=== PATIENT | male | born 1940 | race Caucasian/White ===

== ENCOUNTER 2017-02-28 02:33 | Inpatient (IN) | payer MEDICARE, BC ==
[~2017-02-28] VITALS: Ht 172.7 cm; Wt 82.0 kg
[~2017-02-28 02:33] MED LIST: AFRIN15 ML IN; ASA325 MG PO; BIOTIN1 MG PO; BYSTOLIC5 MG PO; CHLORASEPTIC SPR6 OZ PO; COUMADIN5 MG PO; ENABLEX15 MG PO; FOLIC ACID0.4 MG PO; GINSENG100 M1 PO; JANUVIA100 MG PO; LIPITOR DPS10 MG PO; MORPHINE2 MG/ML IV; NEURONTIN DPS600 MG PO; NOVOLOG100 UNIT/2 SQ; SUPER B COMPLE150 MG PO; VITAMIN B-121000 MCG PO; VITAMIN B-6 PO; XYLOCAINE JELLY30 GM MS; ZESTRIL DPS10 MG PO; ZOFRAN DPS4 MG/2 ML IV; ZOFRAN ODT8 MG PO; [UNRECOGNIZED DRUG - OTHER] PO; [UNRECOGNIZED DRUG - OTHER] PO
--- NOTE | 2017-03-01 13:57 | HP ---
ADMIT: 02/28/2017 RM/LOC: 427 [facility] MR#: [id number] [address] [id number] [address] [place] [address] History and Physical SEX: M AGE: 76 : 1940 DATE OF SERVICE: CHIEF COMPLAINT: Abdominal pain, nausea, vomiting. HISTORY OF PRESENT ILLNESS: A 76-year-old gentleman with history of colon cancer back in the s with resection and ostomy placement. He is complaining of some abdominal pain, began about 2 hours prior to arrival. He has a long history of bowel obstructions, last one in a couple of months ago. This feels just like the previous one. He has some increased abdominal bloating, decreased ostomy output, and pain. He has tenderness diffused throughout the abdomen. Last evening, he had some output, but it is really slowed down. He also very nauseated and has abdominal distention. He is here with family and they have gone through this many times, and so he is here with him today. He actually has an NG placed and does feel much better than he did earlier. He did vomit a large amount prior to that. CT in the ER did reveal small bowel obstruction. PAST MEDICAL HISTORY: 1. History of colon cancer back in the s, status post resection, currently with ostomy in place. 2. 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 3. He has hypertension. 4. Hyperlipidemia. 5. Diabetes type 2. 6. BPH. 7. History of hypogonadism. 8. Peripheral neuropathy. 9. Left carotid stenosis. 10.History of bradycardia, status post pacer in 2010. 11.He has hearing impairment, status post cochlear implant. HOME MEDICATIONS: 1. Metoprolol 25 mg b.i.d. 2. Aspirin 81 mg daily. 3. Oxybutynin 5 mg b.i.d. 4. Gabapentin 600 mg b.i.d. twice a day. 5. Glimepiride 4 mg noon and in the evening. 6. [place] 5/325 every six as needed. 7. Lisinopril 10 mg at bedtime. 8. MiraLax daily. 9. Warfarin 1.25 mg daily. SOCIAL HISTORY: He quit smoking 40 years ago. Currently, nondrinker. Lives at home. FAMILY HISTORY: Significant for hypertension, diabetes, and coronary artery disease. ADMIT: 02/28/2017 RM/LOC: 427 [facility] MR#: [id number] [address] [address] [address] [place] [address] History and Physical SEX: M AGE: 76 : 1940 REVIEW OF SYSTEMS: The patient with some very difficult time hearing and some expressive aphasia. Other complete review of systems obtained and negative except as above. PHYSICAL EXAMINATION: VITAL SIGNS: Temperature 97.6, pulse 60, respirations 18, blood pressure 145/59, oxygen saturation 97% on 2 L of oxygen by nasal cannula. GENERAL: This is a well-appearing, 76-year-old gentleman, in no apparent distress. He is alert. He is oriented. He has poor hearing. HEENT: Head is normocephalic and atraumatic. Pupils equal, round, and reactive to light and accommodation. Extraocular muscles are intact. Throat is clear. NECK: Supple. Trachea midline. Thyroid not palpable. HEART: Regular rate and rhythm. LUNGS: Clear to auscultation bilaterally. ABDOMEN: Diffusely distended. Tympanic to percussion. It is mildly tender diffusely. He has NG in place. EXTREMITIES: Lower extremities have just trace lower extremity edema. He can move all extremities equally and bilaterally. Radial pulses are normal. LABORATORY AND X-RAY DATA: CBC with a white count of 14.2, hemoglobin 15.5, Platelets of 204. INR 2.75. CMP; sodium 135, potassium 4.5, Chloride 102, bicarb 23, BUN 15, creatinine 1.0. Lipase was low. Liver tests normal. Lactic acid initially 2.[address] scan again with obstruction. ASSESSMENT: 1. Abdominal pain. 2. Nausea and vomiting. 3. Small bowel obstruction. He has NG in place at the current time. 4. History of colon cancer. 5. History of cerebrovascular accident. 6. Diabetes. 7. Hypertension. 8. Hyperlipidemia. 9. Chronic anticoagulation. PLAN: We will follow his INRs closely. We will just do the waiting game. We have given him decompression with an NG tube and pain medicine as well as anti- nausea medicine until his bowel obstruction can resolve on its own. We will try to control his sugars in the mean time. Saurabh Luna MD/ del JOB #: [id number] CC: Jacobo Mane, Attending Physician ADMIT: 02/28/2017 RM/LOC: [facility] MR#: [id number] [facility] [address] [address] [address] [place] [address] History and Physical SEX: M AGE: 76 : 1940 Jacobo Mane, Family Physician
--- NOTE | 2017-03-06 15:02 | DS ---
ADMIT: 02/28/2017 RM/LOC: 427 [facility] MR#: [id number] [facility] [address] [place] [id number] [address] [place] [address] Discharge Summary SEX: M AGE: 76 : 1940 ADMISSION DATE: 02/28/2017 DISCHARGE DATE: 03/05/2017 CONSULTATIONS: None. PROCEDURES: None. FINAL DIAGNOSES: 1. Small bowel obstruction. 2. History of colon cancer. 3. History of stroke, on chronic anticoagulation. 4. Diabetes type 2, on oral agents. REASON FOR ADMISSION: The patient is a very pleasant, 76-year-old gentleman with recurrent small bowel obstruction. Came to the ER with increasing abdominal pain, no ostomy output. CT scan concerning for obstruction. Admitted for further stabilization. HOSPITAL COURSE: The patient was admitted. NG placed to low intermittent suction and then high intermittent suction. Slowly and steadily improved. Required [employer] for pain control intermittently. Ultimately, we were able to start some soapsuds enema per ostomy and then escalate to Mag citrate orally, and his bowel function returned to normal. Tolerated a general diet well. [place] safe and stable and eager for discharge. DISCHARGE INSTRUCTIONS: He will discharge to home. He will be on his home medications other than we are going to do a bottle of Mag citrate once weekly, and he will pick the day. Follow up with me in 10-14 days in clinic. INR at that follow-up appointment. The patient is agreeable to plan. Jacobo Mane MD/ deja JOB #: [id number] CC: Jacobo Mane MD, Attending Physician Jacobo Mane MD, Family Physician
[2017-03-06] MEDS ORDERED: METOPROLOL TART25 MG PO (17:02)
[2017-03-06] MEDS ORDERED: NEURONTIN DPS600 MG PO (17:03)
[2017-03-06] MEDS ORDERED: NORCO 5-325 TA1 EACH PO (17:03)
[2017-03-06] MEDS ORDERED: DITROPAN-DPS5 MG PO (17:03)
[2017-03-06] MEDS ORDERED: AMARYL DPS4 MG PO (17:03)
[2017-03-06] MEDS ORDERED: ASA CHILDREN'S81 MG PO (17:03)
[2017-03-06] MEDS ORDERED: ZESTRIL DPS10 MG PO (17:04)
[2017-03-06] MEDS ORDERED: COUMADIN2.5 MG PO (17:04)
[2017-03-06] MEDS ORDERED: MIRALAX PACKET17 GM PO (17:04)
[2017-03-06] MEDS ORDERED: CITROMA DPS300 ML PO (17:05)
--- NOTE | 2017-03-18 07:35 | ER ---
ADMIT: 02/28/2017 RM/LOC: ER [facility] MR#: [id number] [address] [address] [address] [place] [address] Emergency Room Report SEX: M AGE: 76 : 1940 DATE: 02/28/2017 ADDENDUM: See T-sheet for complete H and P. A 76-year-old male with history of colon cancer in the 90s with resection and an ostomy, comes in complaining of abdominal pain that began approximately 2 hours ago. The patient has a long history of bowel obstructions in the past and states this feels like his previous bowel obstructions. Pain is 10/10 and diffuse through his abdomen. He has had some output in his ostomy earlier in the evening, but it seems like it has slowed down. He also feels nauseous and bloated. PHYSICAL EXAMINATION: The patient is obviously in pain. He has high-pitched bowel sounds. No output in his ostomy is seen here, and his abdomen is distended and diffusely tender. LABORATORY DATA: Laboratory results show he has a white count of 14.2, otherwise CBC is unremarkable. Chemistries were unremarkable other than an elevated glucose, and his lactic acid is 2.3. We did check an INR as he has a history of CVAs and is on Coumadin and his INR today was 2.75. CT of abdomen and pelvis was done, which reveals dilated loops of small bowel with likely ileus versus obstruction. EMERGENCY DEPARTMENT COURSE: He did have IV started here, was given a liter of normal saline, Dilaudid for pain, and Zofran for nausea. He had improvement in his symptoms, but they are not completely resolved. While in the ER, the patient was refusing NG tube placement. He was admitted to Dr. Mane's service with a diagnosis of abdominal pain and small-bowel obstruction. Francisco Chisholm MD/ del JOB #: [id number] CC: Francisco Chisholm MD, Attending Physician Jacobo Mane MD, Family Physician
[2017-07-26] MEDS ORDERED: COUMADIN2.5 MG PO (12:06)
[2017-07-26] MEDS ORDERED: COUMADIN5 MG PO (12:07)
[2017-07-26] MEDS ORDERED: LIPITOR DPS10 MG PO (12:07)
[2017-07-31] MEDS ORDERED: AMARYL DPS4 MG PO (17:03)
[2017-07-31] MEDS ORDERED: COUMADIN5 MG PO (17:04)
[2017-07-31] MEDS ORDERED: LIPITOR DPS10 MG PO (17:04)
[2017-07-31] MEDS ORDERED: METOPROLOL TART25 MG PO (17:04)
[2017-07-31] MEDS ORDERED: DITROPAN-DPS5 MG PO (17:04)
[2017-07-31] MEDS ORDERED: COUMADIN2.5 MG PO (17:04)
[2017-07-31] MEDS ORDERED: NEURONTIN DPS600 MG PO (17:05)
== END 2017-03-05 12:50 | disposition home or self-care (01) | DRG 390 ==
LOC: ER 02:33 → 4PCU 05:33
PROVIDERS: ADMIT Internal Medicine
DX: K56.60 Unspecified intestinal obstruction (principal); E11.42 Type 2 diabetes mellitus with diabetic polyneuropathy; I69.320 Aphasia following cerebral infarction; I10 Essential (primary) hypertension; E78.5 Hyperlipidemia, unspecified; N40.0 Benign prostatic hyperplasia without lower urinary tract symptoms; H91.90 Unspecified hearing loss, unspecified ear; I65.22 Occlusion and stenosis of left carotid artery; Z95.0 Presence of cardiac pacemaker; Z96.21 Cochlear implant status; Z79.82 Long term (current) use of aspirin; Z79.01 Long term (current) use of anticoagulants; Z87.891 Personal history of nicotine dependence; Z82.49 Family history of ischemic heart disease and other diseases of the circulatory system; Z85.038 Personal history of other malignant neoplasm of large intestine; Z93.3 Colostomy status; Z79.84 Long term (current) use of oral hypoglycemic drugs